=== PATIENT | female | born 1955 | race Caucasian/White ===

== ENCOUNTER 2016-12-21 15:51 | Inpatient (IN) | payer OTHER ==
[~2016-12-21] VITALS: Ht 172.7 cm; Wt 117.9 kg
[~2016-12-21 15:51] MED LIST: AFLURIA 2045 MCG/0.1 IM; CITALOPRAM HYDR40 MG PO; DIOVAN HCT 12.51 TA1 PO; LEVOTHYROXIN0.075 M1 PO; PARLODEL5 MG PO; VITAMIN B-121000 MCG PO; VITAMIN D32000 I1 PO
--- NOTE | 2016-12-21 16:03 | NUR ---
61 YO FEMALE TO TRIAGE STATING SHE HAD A CT SCAN SCAN THIS AM AND WAS TOLD TO COME TO ER FOR APPY WITH AN ABCESS. C/O FATIGUE. C/O RLQ PAIN PT BROUGHT DIRECTLY TO ROOM FROM [facility]
--- NOTE | 2016-12-21 16:49 | ED GI/GU/ABDOMINAL COMPLAINT ---
See Addendum History of Present Illness General Chief Complaint: Abdominal Pain/Flank Pain Stated Complaint: SIB DR MELENDEZ FOR "APPENDICITIS ON CT SCAN" Source: patient Exam Limitations: no limitations Vital Signs & Intake/Output Vital Signs & Intake/Output Vital Signs Date Time Temp Pulse Resp B/P B/P Pulse O2 O2 Flow FiO2 Mean Ox Delivery Rate 12/22 0653 97.6 74 20 140/90 95 Room Air 12/22 0035 98.3 65 20 140/80 96 Room Air / 2342 98.4 72 18 117/58 95 Room Air 06/05 2159 99.0 88 22 130/60 06 1754 99.6 90 18 135/70 97 Room Air / 1712 100 Room Air / 1602 96.5 105 18 138/92 95 Room Air ED Intake and Output 12/22 0000 12/21 1200 Intake Total Output Total Balance Patient 260 lb Weight Weight Reported by Patient Measurement Method Allergies Coded Allergies: morphine (VOMITING 12/21/16) oxycodone (VOMITING 12/21/16) Reconcile Medications Atorvastatin Calcium 20 MG TABLET 1 TAB PO DAILY CHOLESTEROL (Reported) Bromocriptine Mesylate 2.5 MG TABLET 1 TAB PO BID THYROID (Reported) Cholecalciferol (Vitamin D3) (Vitamin D) (Unknown Strength) CAPSULE (Unknown Dose) PO DAILY SUPPLEMENT (Reported) Citalopram Hydrobromide (Citalopram HBr) 40 MG TABLET 1 TAB PO DAILY MENTAL HEALTH (Reported) Cyanocobalamin (Vitamin B-12) (Unknown Strength) TABLET (Unknown Dose) PO DAILY SUPPLEMENT (Reported) Levothyroxine Sodium 88 MCG TABLET 1 TAB PO DAILY THYROID (Reported) Valsartan/Hydrochlorothiazide (Valsartan-Hctz 320-12.5 MG Tab) 320 MG-12.5 MG TABLET 1 TAB PO DAILY BP (Reported) Verapamil HCl (Verapamil ER) 180 MG TABLET.ER 1 TAB PO DAILY BP (Reported) Warfarin Sodium (Unknown Strength) TABLET (Unknown Dose) PO AD BLOOD THINNER (Reported) Triage Note: 61 YO FEMALE TO TRIAGE STATING SHE HAD A CT SCAN SCAN THIS AM AND WAS TOLD TO COME TO ER FOR APPY WITH AN ABCESS. C/O FATIGUE. C/O RLQ PAIN Triage Nurses Notes Reviewed? yes ? n Is pt currently ? No HPI: Ms. Pollock is a 61 yo f w/ PMH of CHF, MVP s/p valve replacement and on coumadin presenting to the ED for abdominal discomfort. Pt states her abdominal pain began 2 weeks ago, and worsened last week. 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 Over the past week she's had decreased intake by mouth with decreased appetite. Patient endorses subjective fever and chills but no temperature documented at home. +nausea. Patient denies chest pain, shortness of breath, vomiting, or diarrhea. She says she's been more constipated over the past week. She had an appointment with her primary care doctor so she told them about the abdominal pain. Her PCP ordered a CT of her abdomen and pelvis which was performed today. Patient then received a phone call to tell her that she had appendicitis with abscess formation. (MARIAM WEBB MD) Past History Travel History Traveled to [place] past 21 day No Medical History Any Pertinent Medical History? 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 No (MARIAM WEBB MD) Review of Systems Review of Systems Constitutional: Reports: chills, fever, malaise. EENTM: Reports: no symptoms. Respiratory: Reports: no symptoms. Cardiovascular: Reports: no symptoms. GI: Reports: abdominal pain, constipation, nausea. Denies: diarrhea, vomiting. Genitourinary: Reports: no symptoms. Musculoskeletal: Reports: no symptoms. Skin: Reports: no symptoms. Neurological/Psychological: Reports: no symptoms. Hematologic/Endocrine: Reports: no symptoms. Immunologic/Allergic: Reports: no symptoms. All Other Systems: Reviewed and Negative (MARIAM WEBB MD) Physical Exam Physical Exam General Appearance: well developed/nourished, no apparent distress, alert, awake , comfortable Head: atraumatic, normal appearance Eyes: Bilateral: normal appearance, PERRL, EOMI, normal inspection. Ears, Nose, Throat, Mouth: hearing grossly normal, moist mucous membrane Neck: normal inspection, supple, full range of motion, normal alignment Respiratory: normal breath sounds, chest non-tender, no respiratory distress Cardiovascular: regular rate/rhythm Gastrointestinal: normal bowel sounds, soft, + RLQ pain. No guarding or rebound. Back: normal inspection, normal range of motion Extremities: normal range of motion Neurologic/Psych: no motor/sensory deficits, awake, alert, oriented x 3, normal gait, normal mood/affect Skin: intact, normal color, warm/dry Core Measures ACS in differential dx? No Severe Sepsis Present: No Septic Shock Present: No (JON WILCOX,MARIAM) Progress Differential Diagnosis: appendicitis, inflamm bowel dis, PUD/GERD, perforated viscous, UTI/pyelo, abdominal abscess Plan of Care: Orders Procedure Date/time Status Nothing by Mouth 12/22 B Active CBC WITHOUT DIFFERENTIAL 12/22 599 Complete BASIC ELECTROLYTES PLUS BUN&CR 12/22 06 Complete PROTHROMBIN TIME 12/22 0500 Active Vital Signs 12/22 32 Active Teach/Educate 12/22 32 Active Pain Treatment and Response 12/22 32 Active Nutritional Intake, Monitor 12/22 32 Active Isolation 12/22 32 Active Intake & Output 12/22 32 Active Patient Care Conference 12/22 32 Active Activity/Ambulation 12/22 003 Active MISSING MEDICATION FORM 12/22 UNK Active Full Liquid Diet 12/21 D Complete Admit to inpatient 12/21 1842 Active Pathway - chart 12/21 1841 Active Patient Data 12/21 184 Active Code Status 12/21 1841 Active PROTHROMBIN TIME 12/21 1703 Complete COMPREHENSIVE METABOLIC PANEL 12/21 170 Complete CBC WITHOUT DIFFERENTIAL 12/21 170 Complete EKG 12/21 170 Active TYPE & SCREEN (NOT X-MATCH) 12/21 1703 Complete VTE Mechanical Prophylaxis 12/21 UNK Active Vital Signs 12/21 UNK Active Intake & Output 12/21 UNK Active Activity/Ambulation 12/21 UNK Active Current Medications Sig/Arvin Start time Last Medication Dose Stop Time Status Admin Ceftriaxone Sodium 1,000 MG DAILY 12/22 1000 AC (Rocephin) Citalopram 40 MG DAILY 12/22 1000 AC Hydrobromide (Celexa) Losartan Potassium 100 MG DAILY 12/22 1000 AC (Cozaar) Verapamil HCl 180 MG DAILY 12/22 1000 AC (Isoptin [id number] Tab (Verapamil Sr)) Levothyroxine Sodium 0.088 MG DAILY AC 12/22 0700 AC 12/22 (Synthroid) 0605 Metronidazole 500 MG IQ8 12/22 0000 AC 12/22 (Flagyl) 0749 N/A 1 UNIT (No Carrier) Metronidazole 500 MG IQ8 12/22 0000 CAN (Flagyl) N/A 1 UNIT (No Carrier) Bromocriptine 2.5 MG BID 12/21 2200 AC Mesylate (Parlodel 2.5 MG Tablet) Ciprofloxacin 400 MG Q12 12/21 2200 CAN (Ciprofloxacin) Dextrose/Water 200 ML (D5W) Heparin Sodium 5,000 UNIT Q8 12/21 2200 CAN (Porcine) Acetaminophen 650 MG Q6PRN PRN 12/21 1845 AC (Tylenol) Dextrose/Sodium 1,000 ML .Q10H 12/21 1845 AC 12/21 Chloride 1854 (D5-Normal Saline) Ondansetron HCl 4 MG Q8P PRN 12/21 184 AC (Zofran) Laboratory Tests 12/22/16 0610: Anion Gap 9, Estimated GFR > 60, BUN/Creatinine Ratio 12.9, CBC w Diff NO MAN DIFF REQ, RBC 4.00 L, MCV 83.9, MCH 28.1, RDW 13.5, MPV 8.2, Gran % 74.8, Lymphocytes % 14.3 L, Monocytes % 8.0, Eosinophils % 2.2, Basophils % 0.7, Absolute Granulocytes 4.9, Absolute Lymphocytes 0.9 L, Absolute Monocytes 0.5, Absolute Eosinophils 0.1, Absolute Basophils 0, PUBS MCHC 33.5 12/21/16 1715: Anion Gap 12, Estimated GFR > 60, BUN/Creatinine Ratio 15.7, Glucose 85, Calcium 9.3, Total Bilirubin 0.5, AST 17, ALT 29, Alkaline Phosphatase 71, Total Protein 7.3, Albumin 4.2, Globulin 3.1, Albumin/Globulin Ratio 1.4, PT 33.9 H, INR 3.27 H, CBC w Diff NO MAN DIFF REQ, RBC 4.22, MCV 83.5, MCH 28.1, RDW 14.0, MPV 7.9, Gran % 80.6 H, Lymphocytes % 11.5 L, Monocytes % 6.1, Eosinophils % 1.2, Basophils % 0.6, Absolute Granulocytes 7.4 H, Absolute Lymphocytes 1.0 L, Absolute Monocytes 0.6, Absolute Eosinophils 0.1, Absolute Basophils 0.1, PUBS MCHC 33.7 Patient is generally well-appearing. She presents in from her primary care doctor with CT results of appendicitis with abscess formation. Patient has no other abdominal surgeries and has not been seen by any other general surgeon. She does have history of a sternotomy for a mitral valve prolapse repair and is on Coumadin. General surgery was consult and spoke to Dr. Solis. Given the patient's extensive cardiac history as well as CHF and history of mitral valve repair, plan to admit the patient with IV antibiotics and have her evaluated by her radiology physician prior to taking her to the OR. Patient was seen here in the emergency department by Dr. Solis himself. Preop labs were ordered. Patient admitted to surgical floor under Dr. Solis. (MARIAM WEBB MD) Diagnostic Imaging: Viewed by Me: CT Scan. Discussed w/RAD: CT Scan. Radiology Impression: appendicitis w/ abscess formation Initial ED EKG: AFIB (MARIAM WEBB MD) Departure Departure Time of Disposition: 2350 Disposition: STILL A PATIENT Condition: Stable Clinical Impression Primary Impression: Appendicitis with abscess Referrals: YESSENIA LOWE,CARMEN ZELAYA (PCP/Family) Departure Forms: Customer Survey General Discharge Information Admission Note Spoke With: ELDER WILCOX,ALDO Ward Documentation of Exam: Documentation of any treatments & extenuating circumstances including Concerns Regarding Discharge (functional status, medication knowledge or non-compliance, living conditions, etc.) that warrant an admission rather than observation: Patient requires inpatient admission for appendicitis with abscess formation. Patient needs to be evaluated by her radiology physician prior to going to the operating room. Should the patient be discharged without this, her abscess and infection will worsen, could lead to sepsis, increasing her morbidity and mortality. (MARIAM WEBB MD) PA/APARTMENT GROUNDSKEEPER Co-Sign Statement Statement: ED Attending supervision documentation- [] I saw and evaluated the patient. I have also reviewed all the pertinent lab results and diagnostic results. I agree with the findings and the plan of care as documented in the PA's/APARTMENT GROUNDSKEEPER's documentation. [X] I have reviewed the ED Record and agree with the PA's/APARTMENT GROUNDSKEEPER's documentation. [] Additions or exceptions (if any) to the PAs/APARTMENT GROUNDSKEEPER's note and plan are summarized below: [] (SANAM VELEZ DO)
[2016-12-21] MEDS ORDERED: LEVOTHYROXINE88 MCG PO (17:12)
[2016-12-21] MEDS ORDERED: BROMOCRIPTINE2.5 MG PO (17:12)
[2016-12-21] MEDS ORDERED: ATORVASTATIN CA20 M1 PO (17:12)
[2016-12-21] MEDS ORDERED: CITALOPRAM HBR40 MG PO (17:13)
[2016-12-21] MEDS ORDERED: VERAPAMIL ER180 M1 PO (17:13)
[2016-12-21] MEDS ORDERED: VALSARTAN-HCTZ1 EAC4 PO (17:13)
[2016-12-21] MEDS ORDERED: VITAMIN B-121000 MC3 PO (17:15)
[2016-12-21] MEDS ORDERED: WARFARIN SODIU7.5 M1 PO (17:15)
[2016-12-21] MEDS ORDERED: VITAMIN D2000 UNIT PO (17:15)
[2016-12-21 17:26] LABS: ABSOLUTE BASOPHIL COUNT 0.1 /CUMM (0.0-0.2); ABSOLUTE EOSINOPHIL COUNT 0.1 /CUMM (0.0-0.7); ABSOLUTE GRANULOCYTE CT 7.4 /CUMM (1.4-6.5); ABSOLUTE MONOCYTE COUNT 0.6 /CUMM (0.10-0.60); BASOPHIL % 0.6 % (0.0-2.0); EOSINOPHIL % 1.2 % (0-5); GRANULOCYTE % 80.6 % (42.2-75.2); HEMATOCRIT 35.2 % (37-47); MEAN CORPUSCULAR HGB 28.1 PG (27.0-31.0); MEAN CORPUSCULAR HGB CONC 33.7 G/DL (33.0-37.0); MEAN CORPUSCULAR VOLUME 83.5 FL (81.0-99.0); MEAN PLATELET VOLUME 7.9 FL (7.4-10.4); PLATELET COUNT 330 /CUMM (130-400); RED BLOOD CELL CT 4.22 /CUMM (4.20-5.40); WHITE BLOOD CELL COUNT 9.1 /CUMM (4.8-10.8)
[2016-12-21 17:39] LABS: PT 33.9 SEC (9.4-12.5)
--- NOTE | 2016-12-21 18:00 | NUR ---
RESTING W/O C/O. AWAITING BED ASSIGNMENT.
--- NOTE | 2016-12-21 19:46 | History & Physical Pre-Op ---
See Addendum General Information and HPI MD Statement: I have seen and personally examined DASHA MAYFIELD and documented this H&P. The patient is a 61 year old F who presented with a patient stated chief complaint of []. History of Present Illness: 61-year-old female presents to the ED per the direction of her primary care physician. She has had vague right lower quadrant abdominal pain for the last 3 weeks. She states when the pain started, she was so fatigued she had to take a week off of work. She then began to feel better and has worked and gone about her normal day for the past 2 weeks. She describes the pain as mild discomfort in her right lower abdomen. She denies any nausea or vomiting, and has not had any fevers or chills. She was seen by her PCP when she was not feeling well 3 weeks ago and was scheduled for an outpatient CT scan which she had today. She was called by her doctor and told to report to the emergency room due to perforated appendicitis. She says she was surprised by this and did not think she felt sick enough to come to the emergency room. Of note, she takes Coumadin for A. fib and mitral valve replacement. Her dose was recently adjusted and her INR today is greater than 3. Allergies/Medications Allergies: Coded Allergies: morphine (VOMITING 12/21/16) oxycodone (VOMITING 12/21/16) Home Med list Atorvastatin Calcium 20 MG TABLET 1 TAB PO DAILY CHOLESTEROL (Reported) Bromocriptine Mesylate 2.5 MG TABLET 1 TAB PO BID THYROID (Reported) Cholecalciferol (Vitamin D3) (Vitamin D) (Unknown Strength) CAPSULE (Unknown Dose) PO DAILY SUPPLEMENT (Reported) Citalopram Hydrobromide (Citalopram HBr) 40 MG TABLET 1 TAB PO DAILY MENTAL HEALTH (Reported) Cyanocobalamin (Vitamin B-12) (Unknown Strength) TABLET (Unknown Dose) PO DAILY SUPPLEMENT (Reported) Levothyroxine Sodium 88 MCG TABLET 1 TAB PO DAILY THYROID (Reported) Valsartan/Hydrochlorothiazide (Valsartan-Hctz 320-12.5 MG Tab) 320 MG-12.5 MG TABLET 1 TAB PO DAILY BP (Reported) Verapamil HCl (Verapamil ER) 180 MG TABLET.ER 1 TAB PO DAILY BP (Reported) Warfarin Sodium (Unknown Strength) TABLET (Unknown Dose) PO AD BLOOD THINNER (Reported) Past History Medical History Cardiovascular: AFIB, CHF, hyperlipidemia, MITRAL VALVE REPLACEMENT, on chronic coumadin Psychiatric: depression Endocrine: hypothyroidism, 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 Bowel loops are normal in size. There is an appendicolith at the tip of the appendix which is surrounded by a small amount of fluid and fat stranding. The area of fluid attenuation around the tip of the appendix measures approximately 3 x 3 x 2.5 cm. Proximal to this collection, the appendix measures 0.9 cm diameter. Findings are compatible with appendicitis and appendiceal rupture with early periappendiceal abscess formation. IMPRESSION: 1. Appendicitis with periappendiceal abscess. 2. Cardiomegaly and interstitial pulmonary edema without pleural effusion. 3. Mild hepatosplenomegaly." See full radiology report/images for details Assessment/Plan Assessment/Plan: A: 61yoF perf'ed appendicitis with RLQ abscess formation, currently stable. P: broad spectrum abx am labs ivf, npo p mn possible IR drainage- to dw radiology prn pain meds home meds d/w Dr. Solis As Ranked By This Provider Problem List: 1. Appendicitis with peritoneal abscess
--- NOTE | 2016-12-21 20:40 | NUR ---
CLEAR LIQUID DIET GIVEN TO PATIENT.
--- NOTE | 2016-12-21 21:22 | Admission Core Measures ---
Admission Lab Results I reviewed the following labs: Laboratory Tests 12/21 1715 Chemistry Sodium (137 - 145 mmol/L) 137 Potassium (3.5 - 5.1 mmol/L) 3.9 Chloride (98 - 107 mmol/L) 101 Carbon Dioxide (22 - 30 mmol/L) 25 Anion Gap (5 - 16) 12 BUN (7 - 17 mg/dL) 11 Creatinine (0.5 - 1.0 mg/dL) 0.7 Estimated GFR (>60 ml/min) > 60 BUN/Creatinine Ratio (7 - 25 %) 15.7 Glucose (65 - 99 mg/dL) 85 Calcium (8.4 - 10.2 mg/dL) 9.3 Total Bilirubin (0.2 - 1.3 mg/dL) 0.5 AST (14 - 36 U/L) 17 ALT (9 - 52 U/L) 29 Alkaline Phosphatase (<127 U/L) 71 Total Protein (6.3 - 8.2 g/dL) 7.3 Albumin (3.5 - 5.0 g/dL) 4.2 Globulin (1.9 - 4.2 gm/dL) 3.1 Albumin/Globulin Ratio (1.1 - 2.2 %) 1.4 Coagulation PT (9.4 - 12.5 SEC) 33.9 H INR (0.90 - 1.19) 3.27 H Hematology CBC w Diff NO MAN DIFF REQ WBC (4.8 - 10.8 /CUMM) 9.1 RBC (4.20 - 5.40 /CUMM) 4.22 Hgb (12.0 - 16.0 G/DL) 11.9 L Hct (37 - 47 %) 35.2 L MCV (81.0 - 99.0 FL) 83.5 MCH (27.0 - 31.0 PG) 28.1 RDW (11.5 - 14.5 %) 14.0 Plt Count (130 - 400 /CUMM) 330 MPV (7.4 - 10.4 FL) 7.9 Gran % (42.2 - 75.2 %) 80.6 H Lymphocytes % (20.5 - 51.1 %) 11.5 L Monocytes % (1.7 - 9.3 %) 6.1 Eosinophils % (0 - 5 %) 1.2 Basophils % (0.0 - 2.0 %) 0.6 Absolute Granulocytes (1.4 - 6.5 /CUMM) 7.4 H Absolute Lymphocytes (1.2 - 3.4 /CUMM) 1.0 L Absolute Monocytes (0.10 - 0.60 /CUMM) 0.6 Absolute Eosinophils (0.0 - 0.7 /CUMM) 0.1 Absolute Basophils (0.0 - 0.2 /CUMM) 0.1 PUBS MCHC (33.0 - 37.0 G/DL) 33.7 Admission Meds I reviewed the following Meds: Current Medications Sig/Arvin Start time Last Medication Dose Stop Time Status Admin Acetaminophen 650 MG Q6PRN PRN 12/21 1845 AC (Tylenol) Bromocriptine 2.5 MG BID 12/21 2200 UNVr Mesylate (Parlodel 2.5 MG Tablet) Ceftriaxone Sodium 1,000 MG DAILY 12/22 1000 UNVr (Rocephin) Ciprofloxacin 400 MG Q12 12/21 2200 CAN (Ciprofloxacin) Dextrose/Water 200 ML (D5W) Citalopram 40 MG DAILY 12/22 1000 UNVr Hydrobromide (Celexa) Dextrose/Sodium 1,000 ML .Q10H 12/21 1845 AC 12/21 Chloride 1854 (D5-Normal Saline) Heparin Sodium 5,000 UNIT Q8 12/21 2200 CAN (Porcine) Levothyroxine Sodium 0.088 MG DAILY 12/22 1000 UNVr (Synthroid) Losartan Potassium 100 MG DAILY 12/22 1000 UNVr (Cozaar) Metronidazole 500 MG IQ8 12/22 0000 AC (Flagyl) N/A 1 UNIT (No Carrier) Metronidazole 500 MG IQ8 12/22 0000 CANr (Flagyl) N/A 1 UNIT (No Carrier) Ondansetron HCl 4 MG Q8P PRN 12/21 1845 AC (Zofran) Verapamil HCl 180 MG DAILY 12/22 1000 UNVr (Isoptin [id number] Tab (Verapamil Sr)) Acute Coronary Syndrome Inclusion Criteria ACS Diagnosis No Inpatient Core Measures LDL Reminder: If No, please order W/I first 24hr of stay Congestive Heart Failure Inclusion Criteria CHF Diagnosis No Cerebrovascular accident Inclusion Criteria CVA/TIA Diagnosis No Inpatient Core Measures Bedside Swallow Eval Reminder: If BSE failed, place ST order Antithrombotic Reminder: Order Antithrombotic Medication by end of day 2 Antithrombotic Reminder: Document Reason Antithrombotic Not ordered by end of day 2 AFIB/Flutter Reminder: If Present, add to problem list AFIB/Flutter Reminder: Order Anticoag Medication for pts with AFIB/Flutter Atherosclerosis Reminder: If Present, add to problem list LDL Reminder: If No, please order W/I first 24hr of stay PT Order Reminder: If No, please order Venous thromboembolism Inpatient Core Measures VTE Risk Factors: [facility] prophylaxis d/t No contraindications No VTE Pharm Prophylaxis d/t No contraindications Inclusion Criteria - Per Current guidelines, there needs to be overlap - treatment for the first 5 days of Warfarin therapy. - Parenteral Anticoagulation (IV or SC) needs to be - given along with Warfarin therapy. VTE Diagnosis No VTE Type NONE VTE Confirmed by (Test) NONE Problem List As ranked by this Provider includes Assessment & Plan 1. Appendicitis with peritoneal abscess HOME MEDS Home Med List Atorvastatin Calcium 20 MG TABLET 1 TAB PO DAILY CHOLESTEROL (Reported) Bromocriptine Mesylate 2.5 MG TABLET 1 TAB PO BID THYROID (Reported) Cholecalciferol (Vitamin D3) (Vitamin D) (Unknown Strength) CAPSULE (Unknown Dose) PO DAILY SUPPLEMENT (Reported) Citalopram Hydrobromide (Citalopram HBr) 40 MG TABLET 1 TAB PO DAILY MENTAL HEALTH (Reported) Cyanocobalamin (Vitamin B-12) (Unknown Strength) TABLET (Unknown Dose) PO DAILY SUPPLEMENT (Reported) Levothyroxine Sodium 88 MCG TABLET 1 TAB PO DAILY THYROID (Reported) Valsartan/Hydrochlorothiazide (Valsartan-Hctz 320-12.5 MG Tab) 320 MG-12.5 MG TABLET 1 TAB PO DAILY BP (Reported) Verapamil HCl (Verapamil ER) 180 MG TABLET.ER 1 TAB PO DAILY BP (Reported) Warfarin Sodium (Unknown Strength) TABLET (Unknown Dose) PO AD BLOOD THINNER (Reported)
--- NOTE | 2016-12-21 22:12 | NUR ---
RESTING QUIETLY. NO INCREASED PAIN/DISCOMFORT. CONTINUE TO AWAIT BED ASSIGNMENT.
--- NOTE | 2016-12-21 23:01 | NUR ---
PT GOING TO ROOM 224-1.
--- NOTE | 2016-12-21 23:06 | NUR ---
REPORT GIVEN TO REBECA Mahan RN
--- NOTE | 2016-12-22 00:11 | NUR ---
REPORT GIVEN TO OPAL DAVE ORDERED
[2016-12-22 00:35] VITALS: BP 140/80
--- NOTE | 2016-12-22 01:55 | NUR ---
PT ARRIVED TO FLOOR AT 0017 VIA WHEELCHAIR. A&OX3, INDEPENENT, ON RA, NO DISTRESS. C/O PAIN 07/28 RLQ DULL ACHING PAIN. NO INTERVENTIONS NEEDED AT THIS TIME. VSS, AFEBRILE, LUNGS CLEAR THROUGHOUT. IV FLUIDS RUNNING. PT ORIENTED TO ROOM STAFF, AND CALL [facility] WITHIN REACH. WILL MONITOR.
[2016-12-22 06:53] VITALS: BP 140/90
[2016-12-22 08:48] LABS: ABSOLUTE BASOPHIL COUNT 0 /CUMM (0.0-0.2); ABSOLUTE EOSINOPHIL COUNT 0.1 /CUMM (0.0-0.7); ABSOLUTE GRANULOCYTE CT 4.9 /CUMM (1.4-6.5); ABSOLUTE LYMPH COUNT 0.9 /CUMM (1.2-3.4); ABSOLUTE MONOCYTE COUNT 0.5 /CUMM (0.10-0.60); BASOPHIL % 0.7 % (0.0-2.0); EOSINOPHIL % 2.2 % (0-5); GRANULOCYTE % 74.8 % (42.2-75.2); HEMATOCRIT 33.5 % (37-47); MEAN CORPUSCULAR HGB 28.1 PG (27.0-31.0); MEAN CORPUSCULAR HGB CONC 33.5 G/DL (33.0-37.0); MEAN CORPUSCULAR VOLUME 83.9 FL (81.0-99.0); MEAN PLATELET VOLUME 8.2 FL (7.4-10.4); PLATELET COUNT 298 /CUMM (130-400); RBC DISTRIBUTION WIDTH 13.5 % (11.5-14.5); WHITE BLOOD CELL COUNT 6.6 /CUMM (4.8-10.8)
--- NOTE | 2016-12-22 10:05 | PN- General Surgery ---
Surgical Brief Attending Note Brief Attending Note: PATIENT CONTINUES TO DO WELL. NO PAIN. MINIMAL TENDERNESS. CT REVIEWED WITH IR. ABSCESS TOO SMALL AND UNDERDEVELOPED FOR PERCUTANEOUS DRAINAGE. OBSERVE IV ABX. REIMAGE IN A WEEK. MAY DISCHARGE HOME BEFORE NEXT SCAN. AWAIT CARDS INPUT RE; SUITABLITY FOR SURGERY SHOULD IT BECOME NECESSARY.
[2016-12-22 14:13] VITALS: BP 120/60
[2016-12-22 15:15] LABS: PT 32.1 SEC (9.4-12.5)
--- NOTE | 2016-12-22 16:03 | Patient Discharge Instructions ---
Discharge Instructions General Discharge Information You were seen/treated for: perforated appendicitis / non-drainable collection You had these procedures: iv antibiotics Watch for these problems: fever>101.3. increased pain Special Instructions: take antibiotics as directed. follow up with Dr Solis in 1 week, you will need a repeat CT scan at that time. 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 continue the coumadin take Augmentin for your infection (antibiotics) Diet Continue normal diet: Yes Recommended Diet: Heart Healthy Activity Full Activity/No Limits: Yes Activity Self Limited: Yes Acute Coronary Syndrome Inclusion Criteria At DC or during hospital stay patient has or had the following: ACS DIAGNOSIS No Discharge Core Measures Meds if any: Prescribed or Continued at Discharge Meds if any: NOT Prescribed or Continued at Discharge Congestive Heart Failure Inclusion Criteria At DC or during hospital stay patient has or had the following: CHF DIAGNOSIS Yes Discharge Core Measures Meds if any: Prescribed or Continued at Discharge Meds if any: NOT Prescribed or Continued at Discharge Cerebrovascular accident Inclusion Criteria At DC or during hospital stay patient has or had the following: CVA/TIA Diagnosis No Discharge Core Measures Meds if any: Prescribed or Continued at Discharge Meds if any: NOT Prescribed or Continued at Discharge Venous thromboembolism Inclusion Criteria VTE Diagnosis No VTE Type NONE VTE Confirmed by (Test) NONE Discharge Core Measures - Per Current guidelines, there needs to be overlap - treatment for the first 5 days of Warfarin therapy. - If discharged on Warfarin prior to 5 days of - overlap therapy, the patient will need to be - assessed for post discharge needs including - *Post discharge parental anticoagulation - *Warfarin and/or parental anticoagulation education - *Follow up date to check INR post discharge At least 5 days overlap therapy as Inpatient No Meds if any: Prescribed or Continued at Discharge Note: Overlap Therapy is Warfarin and Anticoagulant Meds if any: NOT Prescribed or Continued at Discharge
--- NOTE | 2016-12-22 17:41 | Cons- Cardiology ---
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 The plan is for initial medical management of the appendicitis with antibiotic therapy. I am consulted for preoperative evaluation in case surgery is needed. She is followed in the office by Dr. Betancur from my group. In April 2016 she had a BECKY which revealed moderate stenosis of her bioprosthetic mitral valve. She complains of chronic fatigue which has been present for the past 2 years. She also notes recent symptoms of a flulike illness with abdominal discomfort, shortness of breath, and sweats. Yesterday she had a CT scan of the abdomen and a chest x-ray as an outpatient, and the CT scan showed evidence of appendicitis. There was a question of mild pulmonary edema on the chest x-ray. She has had no chest pain. No palpitations. No syncope. No edema. No orthopnea. No diaphoresis. Allergies/Medications Allergies: Coded Allergies: morphine (VOMITING 12/21/16) oxycodone (VOMITING 12/21/16) Home Med List: Atorvastatin Calcium 20 MG TABLET 1 TAB PO DAILY CHOLESTEROL (Reported) Bromocriptine Mesylate 2.5 MG TABLET 1 TAB PO BID THYROID (Reported) Cholecalciferol (Vitamin D3) (Vitamin D) (Unknown Strength) CAPSULE (Unknown Dose) PO DAILY SUPPLEMENT (Reported) Citalopram Hydrobromide (Citalopram HBr) 40 MG TABLET 1 TAB PO DAILY MENTAL HEALTH (Reported) Cyanocobalamin (Vitamin B-12) (Unknown Strength) TABLET (Unknown Dose) PO DAILY SUPPLEMENT (Reported) Levothyroxine Sodium 88 MCG TABLET 1 TAB PO DAILY THYROID (Reported) Valsartan/Hydrochlorothiazide (Valsartan-Hctz 320-12.5 MG Tab) 320 MG-12.5 MG TABLET 1 TAB PO DAILY BP (Reported) Verapamil HCl (Verapamil ER) 180 MG TABLET.ER 1 TAB PO DAILY BP (Reported) Warfarin Sodium (Unknown Strength) TABLET (Unknown Dose) PO AD BLOOD THINNER (Reported) Current Medications: Current Medications Sig/Arvin Start time Last Medication Dose Route Stop Time Status Admin Acetaminophen 650 MG Q6PRN PRN 12/21 1845 AC PO Bromocriptine 2.5 MG BID 12/21 2200 AC 12/22 Mesylate PO 0928 Ceftriaxone Sodium 1,000 MG DAILY 12/22 1000 AC 12/22 IV 0927 Ciprofloxacin 400 MG Q12 12/21 2200 CAN Dextrose/Water 200 ML IV Citalopram 40 MG DAILY 12/22 1000 AC 12/22 Hydrobromide PO 09 Dextrose/Sodium 1,000 ML .Q10H 12/21 1845 DC 12/22 Chloride IV 0928 Heparin Sodium 5,000 UNIT Q8 12/21 2200 CAN (Porcine) SC Levothyroxine Sodium 0.088 MG DAILY AC 12/22 0700 AC 12/22 PO 0605 Losartan Potassium 100 MG DAILY 12/22 1000 AC 12/22 PO 0928 Metronidazole 500 MG IQ8 12/22 0000 AC 12/22 N/A 1 UNIT IV 1605 Metronidazole 500 MG IQ8 12/22 0000 CAN N/A 1 UNIT IV Ondansetron HCl 4 MG Q8P PRN 12/21 1845 AC IV Patient Medication 1 ED .STK-MED ONE 12/22 1350 [place] Teaching ED 12/22 1351 Verapamil HCl 180 MG DAILY 12/22 1000 AC 12/22 PO 0927 Review of Systems Review of Systems: No rash. No tremor. No melena. All other systems were reviewed, and were noted to be negative. 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 Family history was reviewed with the patient, and is negative for any factors contributing to the current admission. Psychosocial History Where Do You Live? Home Smoking Status: Never Smoked ETOH Use: denies use Illicit Drug Use: denies illicit drug use Functional Ability ADLs Independent: dressing, eating, toileting, bathing. 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) Exam & Diagnostic Data Vital Signs and I&O Vital Signs Date Time Temp Pulse Resp B/P B/P Pulse O2 O2 Flow FiO2 Mean Ox Delivery Rate 12/22 1413 98.2 71 20 120/60 96 Room Air 12/22 0928 72 140/82 12/22 0927 72 140/84 12/22 0653 97.6 74 20 140/90 95 Room Air 12/22 0035 98.3 65 20 140/80 96 Room Air 12/21 2342 98.4 72 18 117/58 95 Room Air 12/21 2159 99.0 88 22 130/60 12/21 1754 99.6 90 18 135/70 97 Room Air Intake & Output 12/22 1600 12/22 0800 12/22 0000 12/21 1600 12/21 0800 12/21 0000 Intake Total 500 800 Output Total 350 350 Balance 150 450 Intake, IV 200 800 Intake, Oral 300 Output, Urine 350 350 Patient 260 lb 260 lb Weight Weight Reported by Patient Measurement Method Physical Exam: Gen: The patient is in no acute distress HEENT: Normal nose, ears, and oropharynx. Pupils equal bilaterally. Conjunctiva normal. Neck: Supple with no JVD, no masses, and no thyromegaly Lungs: Clear to auscultation with normal respiratory effort Heart: Irregularly irregular, S1, S2, 1/6 systolic murmur. No peripheral edema, 2+ pulses in the lower extremities bilaterally Abdomen: Soft, nontender, no masses. No hepatomegaly. No splenomegaly Extremities: No clubbing or cyanosis. Normal muscle strength in the upper and lower extremities Skin: Normal skin turgor with no skin ulcers or lesions noted. Neuro: Cranial nerves intact. Sensation intact Psych: Alert and oriented 3 with appropriate affect Labs/Dheeraj Results: Laboratory Tests 12/22 12/22 1430 0610 Chemistry Sodium (137 - 145 mmol/L) 139 Potassium (3.5 - 5.1 mmol/L) 4.1 Chloride (98 - 107 mmol/L) 105 Carbon Dioxide (22 - 30 mmol/L) 26 Anion Gap (5 - 16) 9 BUN (7 - 17 mg/dL) 9 Creatinine (0.5 - 1.0 mg/dL) 0.7 Estimated GFR (>60 ml/min) > 60 BUN/Creatinine Ratio (7 - 25 %) 12.9 Coagulation PT (9.4 - 12.5 SEC) 32.1 H INR (0.90 - 1.19) 3.09 H Hematology CBC w Diff NO MAN DIFF REQ WBC (4.8 - 10.8 /CUMM) 6.6 RBC (4.20 - 5.40 /CUMM) 4.00 L Hgb (12.0 - 16.0 G/DL) 11.2 L Hct (37 - 47 %) 33.5 L MCV (81.0 - 99.0 FL) 83.9 MCH (27.0 - 31.0 PG) 28.1 RDW (11.5 - 14.5 %) 13.5 Plt Count (130 - 400 /CUMM) 298 MPV (7.4 - 10.4 FL) 8.2 Gran % (42.2 - 75.2 %) 74.8 Lymphocytes % (20.5 - 51.1 %) 14.3 L Monocytes % (1.7 - 9.3 %) 8.0 Eosinophils % (0 - 5 %) 2.2 Basophils % (0.0 - 2.0 %) 0.7 Absolute Granulocytes (1.4 - 6.5 /CUMM) 4.9 Absolute Lymphocytes (1.2 - 3.4 /CUMM) 0.9 L Absolute Monocytes (0.10 - 0.60 /CUMM) 0.5 Absolute Eosinophils (0.0 - 0.7 /CUMM) 0.1 Absolute Basophils (0.0 - 0.2 /CUMM) 0 PUBS MCHC (33.0 - 37.0 G/DL) 33.5 06/05 1715 Chemistry Sodium (137 - 145 mmol/L) 137 Potassium (3.5 - 5.1 mmol/L) 3.9 Chloride (98 - 107 mmol/L) 101 Carbon Dioxide (22 - 30 mmol/L) 25 Anion Gap (5 - 16) 12 BUN (7 - 17 mg/dL) 11 Creatinine (0.5 - 1.0 mg/dL) 0.7 Estimated GFR (>60 ml/min) > 60 BUN/Creatinine Ratio (7 - 25 %) 15.7 Glucose (65 - 99 mg/dL) 85 Calcium (8.4 - 10.2 mg/dL) 9.3 Total Bilirubin (0.2 - 1.3 mg/dL) 0.5 AST (14 - 36 U/L) 17 ALT (9 - 52 U/L) 29 Alkaline Phosphatase (<127 U/L) 71 Total Protein (6.3 - 8.2 g/dL) 7.3 Albumin (3.5 - 5.0 g/dL) 4.2 Globulin (1.9 - 4.2 gm/dL) 3.1 Albumin/Globulin Ratio (1.1 - 2.2 %) 1.4 Coagulation PT (9.4 - 12.5 SEC) 33.9 H INR (0.90 - 1.19) 3.27 H Hematology CBC w Diff NO MAN DIFF REQ WBC (4.8 - 10.8 /CUMM) 9.1 RBC (4.20 - 5.40 /CUMM) 4.22 Hgb (12.0 - 16.0 G/DL) 11.9 L Hct (37 - 47 %) 35.2 L MCV (81.0 - 99.0 FL) 83.5 MCH (27.0 - 31.0 PG) 28.1 RDW (11.5 - 14.5 %) 14.0 Plt Count (130 - 400 /CUMM) 330 MPV (7.4 - 10.4 FL) 7.9 Gran % (42.2 - 75.2 %) 80.6 H Lymphocytes % (20.5 - 51.1 %) 11.5 L Monocytes % (1.7 - 9.3 %) 6.1 Eosinophils % (0 - 5 %) 1.2 Basophils % (0.0 - 2.0 %) 0.6 Absolute Granulocytes (1.4 - 6.5 /CUMM) 7.4 H Absolute Lymphocytes (1.2 - 3.4 /CUMM) 1.0 L Absolute Monocytes (0.10 - 0.60 /CUMM) 0.6 Absolute Eosinophils (0.0 - 0.7 /CUMM) 0.1 Absolute Basophils (0.0 - 0.2 /CUMM) 0.1 PUBS MCHC (33.0 - 37.0 G/DL) 33.7 Diagnostic Data EKG Results EKG tracing is independently reviewed, and reveals atrial fibrillation with ventricular response of 86 CXR Results The cardiomediastinal silhouette is stable appearing. Heart remains mildly enlarged. Patient is status post median sternotomy and mitral valve replacement with multiple sternal wires identified, the lower most of which is fractured and unchanged back to the 2007 exam. There is cephalization of the pulmonary vasculature with mild increase in interstitial markings suggesting mild congestion. The lungs and pleural spaces appear clear without evidence of consolidation,, or significant appearing effusion or atelectasis. There is no evidence of pneumothorax. Included osseous structures demonstrate poststernotomy changes otherwise unremarkable. Other Results CT scan of the abdomen and pelvis: 1. Appendicitis with periappendiceal abscess. 2. Cardiomegaly and interstitial pulmonary edema without pleural effusion. 3. Mild hepatosplenomegaly. BECKY 03/31/16: Normal left systolic function. Severely dilated left atrium. Bioprosthetic mitral valve with moderate stenosis. Assessment/Plan Assessment/Plan The patient is a pleasant 61-year-old female with history of chronic atrial fibrillation, bioprosthetic mitral valve, and moderate bioprosthetic stenosis. She is admitted with acute cholecystitis which is planned to be initially treated conservatively, however surgery may eventually be required. I am consulted for preoperative evaluation. She notes fatigue 2 years and mild recent shortness of breath. Chest x-ray shows the possibility of mild pulmonary edema however there is not evidence of significant congestive heart failure at this time. Recommendations: * Management of acute cholecystitis as per surgery with antibiotic therapy for now and possible future need for surgery. * The patient is antiplatelet with warfarin as an outpatient for atrial fibrillation. INR is currently supratherapeutic despite holding warfarin. Continue to hold warfarin given possible need for surgery. * Repeat echocardiogram to reevaluate stenosis of bioprosthetic mitral valve. * Final recommendations regarding surgical risks will be made once echo results are available. * Continue cardiac medications. Consult Acknowledgment - Thank you for your consult request.
[2016-12-22 22:31] VITALS: BP 120/62
[2016-12-23 06:03] VITALS: BP 128/76
[2016-12-23 07:53] LABS: ABSOLUTE BASOPHIL COUNT 0.1 /CUMM (0.0-0.2); ABSOLUTE EOSINOPHIL COUNT 0.2 /CUMM (0.0-0.7); ABSOLUTE GRANULOCYTE CT 3.8 /CUMM (1.4-6.5); ABSOLUTE LYMPH COUNT 0.8 /CUMM (1.2-3.4); ABSOLUTE MONOCYTE COUNT 0.4 /CUMM (0.10-0.60); BASOPHIL % 1.1 % (0.0-2.0); HEMATOCRIT 33.4 % (37-47); MEAN CORPUSCULAR HGB 28.1 PG (27.0-31.0); MEAN CORPUSCULAR HGB CONC 33.4 G/DL (33.0-37.0); MEAN CORPUSCULAR VOLUME 84.1 FL (81.0-99.0); MEAN PLATELET VOLUME 8.3 FL (7.4-10.4); PLATELET COUNT 246 /CUMM (130-400); RBC DISTRIBUTION WIDTH 13.7 % (11.5-14.5); RED BLOOD CELL CT 3.97 /CUMM (4.20-5.40); WHITE BLOOD CELL COUNT 5.3 /CUMM (4.8-10.8)
[2016-12-23 08:13] LABS: PT 27.1 SEC (9.4-12.5)
--- NOTE | 2016-12-23 09:57 | PN- Cardiology ---
NELLY,[facility] 12/23/16 0956: Subjective Subjective: Patient seen and examined. she is comfortable with no acute distress, she denies any chest pain. She complaint of SOB with walking a short distance which has been going on for about a month. Per patient surgical team in going to manage appendicits medically, as she has small abcess which dosen't need surgical intervention. Review of Systems Constitutional: Reports: no symptoms. EENTM: Reports: no symptoms. Cardiovascular: Reports: no symptoms. Respiratory: Reports: short of breath. Gastrointestinal: Reports: no symptoms. Genitourinary: Reports: no symptoms. Musculoskeletal: Reports: no symptoms. All Other Systems: Reviewed and Negative Objective Vital Signs and I&Os Vital Signs Date Time Temp Pulse Resp B/P B/P Pulse O2 O2 Flow FiO2 Mean Ox Delivery Rate 12/23 09 82 132/80 12/23 0912 82 132/80 12/23 0603 98.2 82 18 128/76 94 Room Air 12/22 2231 98.0 67 20 120/62 96 12/22 1413 98.2 71 20 120/60 96 Room Air Intake & Output 12/23 1600 12/23 0800 12/23 0000 12/22 1600 12/22 0800 12/22 0000 Intake Total 150 250 500 800 Output Total 200 300 350 350 Balance -50 -50 150 450 Intake, IV 200 800 Intake, Oral 150 250 300 Output, Urine 200 300 350 350 Patient 260 lb 260 lb Weight Weight Reported by Patient Measurement Method Physical Exam General Appearance: well developed/nourished, no apparent distress, alert, awake , comfortable Head: atraumatic, normal appearance Neck: normal inspection, supple Respiratory: normal breath sounds Cardiovascular: irregularly irregular Peripheral Pulses: 3+ dorsalis pedis (R), 3+ dorsalis pedis (L) Abdomen: normal bowel sounds, soft Current Medications: Current Medications Sig/Arvin Start time Last Medication Dose Route Stop Time Status Admin Acetaminophen 650 MG Q6PRN PRN 12/21 1845 AC PO Bromocriptine 2.5 MG BID 12/21 2200 AC 12/23 Mesylate PO 0910 Ceftriaxone Sodium 1,000 MG DAILY 12/22 1000 AC 12/23 IV 0910 Citalopram 40 MG DAILY 12/22 1000 AC 12/23 Hydrobromide PO 0911 Levothyroxine Sodium 0.088 MG DAILY AC 12/22 0700 AC 12/23 PO 0536 Losartan Potassium 100 MG DAILY 12/22 1000 AC 12/23 PO 0912 Metronidazole 500 MG IQ8 12/22 0000 AC 12/23 N/A 1 UNIT IV 0748 Ondansetron HCl 4 MG Q8P PRN 12/21 1845 AC IV Patient Medication 1 ED .STK-MED ONE 12/22 1350 [place] Teaching ED 12/22 1351 Verapamil HCl 180 MG DAILY 12/22 1000 AC 12/23 PO 0912 Results Last 48 Hrs of Labs/Mics: Laboratory Tests 12/23/16 0615: PT 27.1 H, INR 2.61 H, CBC w Diff NO MAN DIFF REQ, RBC 3.97 L, MCV 84.1, MCH 28.1, RDW 13.7, MPV 8.3, Gran % 73.0, Lymphocytes % 15.3 L, Monocytes % 7.6, Eosinophils % 3.0, Basophils % 1.1, Absolute Granulocytes 3.8, Absolute Lymphocytes 0.8 L, Absolute Monocytes 0.4, Absolute Eosinophils 0.2, Absolute Basophils 0.1, PUBS MCHC 33.4 12/22/16 1430: PT 32.1 H, INR 3.09 H 12/22/16 0610: Anion Gap 9, Estimated GFR > 60, BUN/Creatinine Ratio 12.9, CBC w Diff NO MAN DIFF REQ, RBC 4.00 L, MCV 83.9, MCH 28.1, RDW 13.5, MPV 8.2, Gran % 74.8, Lymphocytes % 14.3 L, Monocytes % 8.0, Eosinophils % 2.2, Basophils % 0.7, Absolute Granulocytes 4.9, Absolute Lymphocytes 0.9 L, Absolute Monocytes 0.5, Absolute Eosinophils 0.1, Absolute Basophils 0, PUBS MCHC 33.5 12/21/16 1715: Anion Gap 12, Estimated GFR > 60, BUN/Creatinine Ratio 15.7, Glucose 85, Calcium 9.3, Total Bilirubin 0.5, AST 17, ALT 29, Alkaline Phosphatase 71, Total Protein 7.3, Albumin 4.2, Globulin 3.1, Albumin/Globulin Ratio 1.4, PT 33.9 H, INR 3.27 H, CBC w Diff NO MAN DIFF REQ, RBC 4.22, MCV 83.5, MCH 28.1, RDW 14.0, MPV 7.9, Gran % 80.6 H, Lymphocytes % 11.5 L, Monocytes % 6.1, Eosinophils % 1.2, Basophils % 0.6, Absolute Granulocytes 7.4 H, Absolute Lymphocytes 1.0 L, Absolute Monocytes 0.6, Absolute Eosinophils 0.1, Absolute Basophils 0.1, PUBS MCHC 33.7 Assessment/Plan Assessment/Plan The patient is a pleasant 61-year-old female with history of chronic atrial fibrillation, bioprosthetic mitral valve, and moderate bioprosthetic stenosis. She is admitted with acute cholecystitis which is planned to be initially treated conservatively, however surgery may eventually be required. Cardiology consulted for preoperative evaluation. She notes fatigue 2 years and mild recent shortness of breath. Chest x-ray shows the possibility of mild pulmonary edema however there is not evidence of significant congestive heart failure at this time. #Assessment: -Acute appendicitis with periappendiceal abscess. -Pulmonary edema per CXR -History of chronic atrial fibrillation on Coumadin (currently on hold in anticipation for the surgery) -History of bioprosthetic mitral valve, and moderate bioprosthetic stenosis. -History of hypertension Plan: -INR today is 2.61 (therapeutic), if no surgical intervention anticipated, coumadin should be restarted -Final recommendations regarding surgical risks will be made once echo results are available. -Continue cardiac medications (Cozaar 100 mg daily, verapamil 180 mg daily) Continue telemetry? Not applicable Problem List: 1. Atrial fibrillation with rapid ventricular response 2. Acute cholecystitis ARELI WELLER MD 12/23/16 2019: Assessment/Plan Assessment/Plan ATtending addendum: THe patient remains stable from a cardiac standpoint Echocardiogram pending The patient is being managed medically without plans for surgical intervention at the moment. The patient understands that she should followup with Dr. Betancur as an outpatient.
--- NOTE | 2016-12-23 13:19 | PN- General Surgery ---
Subjective Subjective: FEELS WELL. NO ABD PAIN. TOLERATING DIET. Objective Vital Signs and I&Os Vital Signs Date Time Temp Pulse Resp B/P B/P Pulse O2 O2 Flow FiO2 Mean Ox Delivery Rate 12/24 911 82 132/80 12/24 911 82 132/80 12/23 0603 98.2 82 18 128/76 94 Room Air 12/22 2231 98.0 67 20 120/62 96 12/22 1413 98.2 71 20 120/60 96 Room Air Intake & Output 12/23 1600 12/23 0812/23 0000 12/22 1600 12/22 0812/22 0000 Intake Total 150 250 500 800 Output Total 200 300 350 350 Balance -50 -50 150 450 Intake, IV 200 800 Intake, Oral 150 250 300 Output, Urine 200 300 350 350 Patient 260 lb 260 lb Weight Weight Reported by Patient Measurement Method Physical Exam: GEN; OBESE. NAD. LOOKS WELL. ABD; SOFT, NT Current Medications: Current Medications Sig/Arvin Start time Last Medication Dose Route Stop Time Status Admin Acetaminophen 650 MG Q6PRN PRN 12/21 1845 AC PO Bromocriptine 2.5 MG BID 12/21 2200 AC 12/23 Mesylate PO 0910 Ceftriaxone Sodium 1,000 MG DAILY 12/22 1000 AC 12/23 IV 0910 Citalopram 40 MG DAILY 12/22 1000 AC 12/23 Hydrobromide PO 0911 Levothyroxine Sodium 0.088 MG DAILY AC 12/22 0700 AC 12/23 PO 0536 Losartan Potassium 100 MG DAILY 12/22 1000 AC 12/23 PO 0912 Metronidazole 500 MG IQ8 12/22 0000 AC 12/23 N/A 1 UNIT IV 0748 Ondansetron HCl 4 MG Q8P PRN 12/21 1845 AC IV Patient Medication 1 ED .STK-MED ONE 12/22 1350 [place] Teaching ED 12/22 1351 Verapamil HCl 180 MG DAILY 12/22 1000 AC 12/23 PO 0912 Results Last 48 Hours of Labs: Laboratory Tests 12/23 12/22 0615 1430 Coagulation PT (9.4 - 12.5 SEC) 27.1 H 32.1 H INR (0.90 - 1.19) 2.61 H 3.09 H Hematology CBC w Diff NO MAN DIFF REQ WBC (4.8 - 10.8 /CUMM) 5.3 RBC (4.20 - 5.40 /CUMM) 3.97 L Hgb (12.0 - 16.0 G/DL) 11.2 L Hct (37 - 47 %) 33.4 L MCV (81.0 - 99.0 FL) 84.1 MCH (27.0 - 31.0 PG) 28.1 RDW (11.5 - 14.5 %) 13.7 Plt Count (130 - 400 /CUMM) 246 MPV (7.4 - 10.4 FL) 8.3 Gran % (42.2 - 75.2 %) 73.0 Lymphocytes % (20.5 - 51.1 %) 15.3 L Monocytes % (1.7 - 9.3 %) 7.6 Eosinophils % (0 - 5 %) 3.0 Basophils % (0.0 - 2.0 %) 1.1 Absolute Granulocytes (1.4 - 6.5 /CUMM) 3.8 Absolute Lymphocytes (1.2 - 3.4 /CUMM) 0.8 L Absolute Monocytes (0.10 - 0.60 /CUMM) 0.4 Absolute Eosinophils (0.0 - 0.7 /CUMM) 0.2 Absolute Basophils (0.0 - 0.2 /CUMM) 0.1 PUBS MCHC (33.0 - 37.0 G/DL) 33.4 06 06/05 0610 1715 Chemistry Sodium (137 - 145 mmol/L) 139 137 Potassium (3.5 - 5.1 mmol/L) 4.1 3.9 Chloride (98 - 107 mmol/L) 105 101 Carbon Dioxide (22 - 30 mmol/L) 26 25 Anion Gap (5 - 16) 9 12 BUN (7 - 17 mg/dL) 9 11 Creatinine (0.5 - 1.0 mg/dL) 0.7 0.7 Estimated GFR (>60 ml/min) > 60 > 60 BUN/Creatinine Ratio (7 - 25 %) 12.9 15.7 Glucose (65 - 99 mg/dL) 85 Calcium (8.4 - 10.2 mg/dL) 9.3 Total Bilirubin (0.2 - 1.3 mg/dL) 0.5 AST (14 - 36 U/L) 17 ALT (9 - 52 U/L) 29 Alkaline Phosphatase (<127 U/L) 71 Total Protein (6.3 - 8.2 g/dL) 7.3 Albumin (3.5 - 5.0 g/dL) 4.2 Globulin (1.9 - 4.2 gm/dL) 3.1 Albumin/Globulin Ratio (1.1 - 2.2 %) 1.4 Coagulation PT (9.4 - 12.5 SEC) 33.9 H INR (0.90 - 1.19) 3.27 H Hematology CBC w Diff NO MAN DIFF REQ NO MAN DIFF REQ WBC (4.8 - 10.8 /CUMM) 6.6 9.1 RBC (4.20 - 5.40 /CUMM) 4.00 L 4.22 Hgb (12.0 - 16.0 G/DL) 11.2 L 11.9 L Hct (37 - 47 %) 33.5 L 35.2 L MCV (81.0 - 99.0 FL) 83.9 83.5 MCH (27.0 - 31.0 PG) 28.1 28.1 RDW (11.5 - 14.5 %) 13.5 14.0 Plt Count (130 - 400 /CUMM) 298 330 MPV (7.4 - 10.4 FL) 8.2 7.9 Gran % (42.2 - 75.2 %) 74.8 80.6 H Lymphocytes % (20.5 - 51.1 %) 14.3 L 11.5 L Monocytes % (1.7 - 9.3 %) 8.0 6.1 Eosinophils % (0 - 5 %) 2.2 1.2 Basophils % (0.0 - 2.0 %) 0.7 0.6 Absolute Granulocytes (1.4 - 6.5 /CUMM) 4.9 7.4 H Absolute Lymphocytes (1.2 - 3.4 /CUMM) 0.9 L 1.0 L Absolute Monocytes (0.10 - 0.60 /CUMM) 0.5 0.6 Absolute Eosinophils (0.0 - 0.7 /CUMM) 0.1 0.1 Absolute Basophils (0.0 - 0.2 /CUMM) 0 0.1 PUBS MCHC (33.0 - 37.0 G/DL) 33.5 33.7 Assessment/Plan Assessment/Plan APPENDICITIS WITH PERFORATION AND SMALL ABSCESS. MEDICAL MANAGEMENT THUS FAR HAS IMPROVED SYMPTOMS. NOW WITHOUT PAIN. PLAN FOR DISCHARGE ON ORAL ABX FOR F/U CT OUTPATIENT, PENDING FINAL CARDS RECOMMENDATIONS RE: POSSIBLE MED CHANGE.
[2016-12-23 14:19] VITALS: BP 128/62
--- NOTE | 2016-12-23 14:21 | NUR ---
SHIFT NOTE PT DENIES PAIN/DISCOMFORT. AMBULATING IND. OOB. TOLERATING PO INTAKE. ON IV FLAGYL. SAFETY MAINTAINED, NEEDS IN REACH.
--- NOTE | 2016-12-23 17:46 | ECHOCARDIOGRAM REPORT ---
DAHSA MAYFIELD Age: 61 : 1955 Gender: F Exam Date: 12/22/2016 18:18 Exam Location: [place] [facility] Ht (in): 68 Wt (lb): 260 BSA: 2.43 BP: 120 / 60 Ordering Physician: SAMI LION M Referring Physician: SAMI LION MD Technologist: Zofia Capone RUST Room Number: 224-01 Indications: VALVULAR DISEASE, BIOPROSTHETIC MV WITH STENOSIS Rhythm: Atrial fibrillation Technical Quality: Fair FINDINGS Left Ventricle Normal size left ventricle. Normal left ventricular wall thickness. Normal left ventricular ejection fraction visually estimated at > 55%. Normal left ventricular wall motion. Right Ventricle Normal right ventricular size and function. Right Atrium Mild right atrial dilatation. Left Atrium Severe left atrial dilatation. Mitral Valve Bioprosthetic mitral valve. Mild mitral regurgitation. Mitral valve area by pressure half time is 1.45 sq cm. The mean mitral valve gradient is 13 mmHg. 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 Aortic Valve Diffuse thickening (sclerosis) of the aortic valve cusps without reduced excursion. No aortic stenosis. No aortic regurgitation. Tricuspid Valve Tricuspid valve not well visualized, grossly normal. Mild tricuspid regurgitation. No evidence of pulmonary hypertension. RVSP 38 mmHg. Pulmonic Valve Pulmonic valve not well visualized, grossly normal. Trace pulmonic regurgitation. Pericardium No pericardial effusion. Great Vessels Normal size aortic root. CONCLUSIONS Normal size left ventricle. Normal left ventricular ejection fraction visually estimated at > 55%. Mild right atrial dilatation. Severe left atrial dilatation. Bioprosthetic mitral valve. Mild mitral regurgitation. Mitral valve area by pressure half time is 1.45 sq cm. The mean mitral valve gradient is 13 mmHg. 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 Mild tricuspid regurgitation. Normal left ventricular ejection fraction visually estimated at > 55%. Sami Lion M.D. (Electronically Signed) Final Date: 23 December 2016 17:45 MEASUREMENTS (Male / Female) Normal Values 2D ECHO LV Diastolic Diameter PLAX 5.2 cm 4.2 - 5.9 / 3.9 - 5.3 cm LV Systolic Diameter PLAX 2.9 cm 2.1 - 4.0 cm LV Fractional Shortening PLAX 44.2 % 25 - 46 % LV Ejection Fraction 2D Teich 75.1 % IVS Diastolic Thickness 1.0 cm LVPW Diastolic Thickness 1.0 cm LV Relative Wall Thickness 0.4 RV Internal Dim ED PLAX 3.4 cm 1.9 - 3.8 cm LVOT Diameter 1.9 cm Aortic Root Diameter 3.2 cm LA Systolic Diameter LX 5.6 cm 3.0 - 4.0 / 2.7 - 3.8 cm LA Volume 119.0 cm 18 - 58 / 22 - 52 cm Ascending Aorta Diameter 3.0 cm DOPPLER AV Peak Velocity 159.0 cm/s AV Peak Gradient 10.1 mmHg AV Mean Velocity 110.0 cm/s AV Mean Gradient 6.0 mmHg AV Velocity Time Integral 35.4 cm LVOT Peak Velocity 119.0 cm/s LVOT Peak Gradient 5.7 mmHg LVOT Mean Velocity 78.1 cm/s LVOT Mean Gradient 3.0 mmHg LVOT Velocity Time Integral 27.6 cm LVOT Stroke Volume 78.3 cm AV Area Cont Eq vti 2.2 cm AV Area Cont Eq pk 2.1 cm MV Peak Velocity 297.0 cm/s MV Peak Gradient 35.0 mmHg MV Mean Velocity 163.0 cm/s MV Mean Gradient 13.0 mmHg Mitral E Point Velocity 236.0 cm/s MV PHT Velocity 289.5 cm/s MV Deceleration [place] 603.0 cm/s MV Pressure Half Time 144.0 ms MV Area PHT 1.5 cm MV Deceleration Time 478.0 ms TR Peak Velocity 288.0 cm/s TR Peak Gradient 33.2 mmHg Right Atrial Pressure 5.0 mmHg Pulmonary Artery Systolic Pressu 38.2 mmHg Right Ventricular Systolic Press 38.2 mmHg PV Peak Velocity 79.6 cm/s PV Peak Gradient 2.5 mmHg PV Mean Velocity 58.8 cm/s PV Mean Gradient 2.0 mmHg PV Velocity Time Integral 16.3 cm LV E' Lateral Velocity 8.5 cm/s Mitral E to LV E' Lateral Ratio 27.8 LV E' Septal Velocity 3.9 cm/s Mitral E to LV E' Septal Ratio 60.5
[2016-12-23 21:55] VITALS: BP 120/76
[2016-12-24 06:25] VITALS: BP 128/74
--- NOTE | 2016-12-24 08:01 | PN- General Surgery ---
Subjective Subjective: Patient comfortable, no acute events overnight, no pain, no fever, no nausea vomiting, she has a normal appetite and would like to be discharged home today Objective Vital Signs and I&Os Vital Signs Date Time Temp Pulse Resp B/P B/P Pulse O2 O2 Flow FiO2 Mean Ox Delivery Rate 12/24 0525 97.9 87 18 128/74 96 Room Air 12/23 2155 98.3 65 20 120/76 94 Room Air 12/23 1419 97.8 74 20 128/62 93 12/23 09 82 132/80 12/23 09 82 132/80 Intake & Output 12/24 0812/24 0000 12/23 1600 12/23 0812/23 0000 12/22 1600 Intake Total 270 200 650 150 250 500 Output Total 350 200 300 350 Balance 270 200 300 -50 -50 150 Intake, IV 150 200 100 200 Intake, Oral 120 550 150 250 300 Output, Urine 350 200 300 350 Physical Exam: Well-developed well-nourished no apparent distress. HEENT: Atraumatic, extraocular motion intact Neck: Supple, no lymphadenopathy Respiratory: No respiratory distress Abdomen: Soft, nontender nondistended Extremities: No edema, no calf pain Neuro: Alert and oriented x3 Psych: Mood affect normal, normal memory normal judgment. Skin: Warm and dry, no rash on exposed skin Results Last 48 Hours of Labs: Laboratory Tests 12/23 1430 Coagulation PT (9.4 - 12.5 SEC) 27.1 H 32.1 H INR (0.90 - 1.19) 2.61 H 3.09 H Hematology CBC w Diff NO MAN DIFF REQ WBC (4.8 - 10.8 /CUMM) 5.3 RBC (4.20 - 5.40 /CUMM) 3.97 L Hgb (12.0 - 16.0 G/DL) 11.2 L Hct (37 - 47 %) 33.4 L MCV (81.0 - 99.0 FL) 84.1 MCH (27.0 - 31.0 PG) 28.1 RDW (11.5 - 14.5 %) 13.7 Plt Count (130 - 400 /CUMM) 246 MPV (7.4 - 10.4 FL) 8.3 Gran % (42.2 - 75.2 %) 73.0 Lymphocytes % (20.5 - 51.1 %) 15.3 L Monocytes % (1.7 - 9.3 %) 7.6 Eosinophils % (0 - 5 %) 3.0 Basophils % (0.0 - 2.0 %) 1.1 Absolute Granulocytes (1.4 - 6.5 /CUMM) 3.8 Absolute Lymphocytes (1.2 - 3.4 /CUMM) 0.8 L Absolute Monocytes (0.10 - 0.60 /CUMM) 0.4 Absolute Eosinophils (0.0 - 0.7 /CUMM) 0.2 Absolute Basophils (0.0 - 0.2 /CUMM) 0.1 PUBS MCHC (33.0 - 37.0 G/DL) 33.4 Assessment/Plan Assessment/Plan Hospital day #3 status post perforated appendicitis with abscess Stable for discharge home today, continue antibiotics as outpatient Appreciate cardiology input, discussed with patient, 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 Core Measures/Miscellaneous Venous Thromboembolism VTE Risk Factors: Age > 40, No Risk Factors VTE Contraindications: No Contraindications VTE Diagnosis: No VTE Type: NONE VTE Confirmed by (Test): NONE Beta Blanche Is Beta Blanche a Home Med? Yes If Yes, Was This Ordered Today? Yes Antibiotics Is Patient on Antibiotics? Yes If Yes: infection
[2016-12-24] MEDS ORDERED: AUGMENTIN 875-1 EACH PO (08:06)
[2016-12-24 09:10] VITALS: BP 130/78
--- NOTE | 2016-12-24 10:08 | PN- Cardiology ---
Subjective Subjective: Feeling mostly well. No current abdominal pain. No chest pain. No nausea or vomiting. No palpitations. Objective Vital Signs and I&Os Vital Signs Date Time Temp Pulse Resp B/P B/P Pulse O2 O2 Flow FiO2 Mean Ox Delivery Rate 12/24 0910 80 130/78 12/24 0910 80 130/76 12/24 0625 97.9 87 18 128/74 96 Room Air 12/23 2155 98.3 65 20 120/76 94 Room Air 12/23 1419 97.8 74 20 128/62 93 Intake & Output 12/24 1600 12/24 0800 12/24 0000 12/23 1600 12/23 0800 12/23 0000 Intake Total 270 200 650 150 250 Output Total 350 200 300 Balance 270 200 300 -50 -50 Intake, IV 150 200 100 Intake, Oral 120 550 150 250 Output, Urine 350 200 300 Physical Exam: Well-developed well-nourished no apparent distress. HEENT: Atraumatic, extraocular motion intact Neck: Supple, no lymphadenopathy Respiratory: No respiratory distress Abdomen: Soft, nontender nondistended Extremities: No edema, no calf pain Neuro: Alert and oriented x3 Psych: Mood affect normal, normal memory normal judgment. Skin: Warm and dry, no rash on exposed skin Current Medications: Current Medications Sig/Arvin Start time Last Medication Dose Route Stop Time Status Admin Acetaminophen 650 MG Q6PRN PRN 12/21 1845 DCD PO Bromocriptine 2.5 MG BID 12/21 2200 DCD 12/24 Mesylate PO 0910 Ceftriaxone Sodium 1,000 MG DAILY 12/22 1000 DCD 12/24 IV 0910 Citalopram 40 MG DAILY 12/22 1000 DCD 12/24 Hydrobromide PO 0910 Levothyroxine Sodium 0.088 MG DAILY AC 12/22 0700 DCD 12/24 PO 0541 Losartan Potassium 100 MG DAILY 12/22 1000 DCD 06/ PO 0910 Metronidazole 500 MG IQ8 12/22 0000 DCD 12/24 N/A 1 UNIT IV 0753 Ondansetron HCl 4 MG Q8P PRN 12/21 1845 DCD IV Verapamil HCl 180 MG DAILY 12/22 1000 DCD 06 PO 0910 Results Last 48 Hrs of Labs/Mics: Laboratory Tests 12/23/1615: PT 27.1 H, INR 2.61 H, CBC w Diff NO MAN DIFF REQ, RBC 3.97 L, MCV 84.1, MCH 28.1, RDW 13.7, MPV 8.3, Gran % 73.0, Lymphocytes % 15.3 L, Monocytes % 7.6, Eosinophils % 3.0, Basophils % 1.1, Absolute Granulocytes 3.8, Absolute Lymphocytes 0.8 L, Absolute Monocytes 0.4, Absolute Eosinophils 0.2, Absolute Basophils 0.1, PUBS MCHC 33.4 12/22/16 1430: PT 32.1 H, INR 3.09 H Recent Imaging Studies: Echocardiogram 12/23/16: Normal size left ventricle. Normal left ventricular ejection fraction visually estimated at > 55%. Mild right atrial dilatation. Severe left atrial dilatation. Bioprosthetic mitral valve. Mild mitral regurgitation. Mitral valve area by pressure half time is 1.45 sq cm. The mean mitral valve gradient is 13 mmHg. 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 Mild tricuspid regurgitation. Normal left ventricular ejection fraction visually estimated at > 55%. Assessment/Plan Assessment/Plan Assessment: 1. 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 Chronic atrial fibrillation 3. Appendicitis with perforation and small abscess. Conservative management recommended by surgical service. Plan: * Continue current cardiac medications. * Continue warfarin with dose adjusted for INR 2-3 * Follow up with Dr. Betancur in 1 week, and prior to any nonurgent surgery Continue telemetry? Not applicable
--- NOTE | 2016-12-26 13:40 | Surgical Discharge Summary ---
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 Home What is Your Primary Language? Bengali ETOH Use: denies use Review of Systems: NOT PERFORMED AT D/C Hospital Course Course Attending Physician: ALDO FRIEDMAN MD Primary Care Physician: CARMEN BERNARD Hospital Course: ADMITTED FOR IV ANTIBIOTICS AND MEDICAL MANAGEMENT OF APPENDICEAL ABSCESS. DISCUSSION WITH IR REVEALED ABSCESS TO SMALL AND UNORGANIZED ENOUGH TO PLACE DRAIN. SHE WAS MANAGED MEDICALLY AND DISCHARGED AFTER EVALUATION BY CARDIOLOGY RE; ?CHF. PLAN WILL BE ORAL ANTIBIOTICS AND REIMAGE OUTPATIENT NEXT WEEK. Allergies: Coded Allergies: morphine (VOMITING 12/21/16) oxycodone (VOMITING 12/21/16) Disposition Summary Disposition Principal Diagnosis: APPENDICITIS WITH ABSCESS Additional Diagnosis: CHF Discharge Disposition: home or self care Discharge Instructions General Discharge Information Code Status: Full Code Patient's Diet: REGULAR Patient's Activity: SELF LIMITED Follow-Up Instructions/Appts: ONE WEEK Medications at Discharge Discharge Medications: Continue taking these medications: Atorvastatin Calcium (Atorvastatin Calcium) 20 MG TABLET 1 Tablet ORAL DAILY Qty = 30 Comments: NOT TAKEN IN HOSPITAL Bromocriptine Mesylate (Bromocriptine Mesylate) 2.5 MG TABLET 1 Tablet ORAL TWICE DAILY Qty = 60 Comments: Last Taken: 12/24/16 Time: 0900 AM Levothyroxine Sodium (Levothyroxine Sodium) 88 MCG TABLET 1 Tablet ORAL DAILY Qty = 30 Comments: Last Taken: 12/24/16 Time: 0500 AM Verapamil HCl (Verapamil ER) 180 MG TABLET.ER 1 Tablet ORAL DAILY Qty = 60 Comments: Last Taken: 12/24/16 Time: 0900 AM Citalopram Hydrobromide (Citalopram HBr) 40 MG TABLET 1 Tablet ORAL DAILY Qty = 30 Comments: Last Taken: 12/24/16 Time: 0900AM Valsartan/Hydrochlorothiazide (Valsartan-Hctz 320-12.5 MG Tab) 320 MG-12.5 MG TABLET 1 Tablet ORAL DAILY Qty = 30 Comments: Last Taken: 12/24/16 Time: 0900 AM Warfarin Sodium (Warfarin Sodium) (Unknown Strength) TABLET Unknown Dose ORAL As Directed Qty = 60 Comments: NOT TAKEN IN HOSPITAL Cyanocobalamin (Vitamin B-12) (Unknown Strength) TABLET Unknown Dose ORAL DAILY Comments: NOT TAKEN IN HOSPITAL Cholecalciferol (Vitamin D3) (Vitamin D) (Unknown Strength) CAPSULE Unknown Dose ORAL DAILY Comments: NOT TAKEN IN HOSPITAL Start taking the following new medications: Amoxicillin/Potassium Clav (Augmentin 875-125 Tablet) 875 MG-125 MG TABLET 1 Tablet ORAL TWICE DAILY Qty = 20 No Refills Copies To: CARMEN BERNARD
== END 2016-12-24 09:57 | DRG 373 ==
LOC: ERH 15:51 → 2NA 18:42 → ERHI 18:42 → ENRESERV 22:59 → 2NA 12-22 00:14 → ENPENDDIS 12-24 08:12 → 2NA 12-24 09:57
PROVIDERS: Emergency Medicine; Physician Assistant; Physician Assistant Surgical; ADMIT Surgery
DX: K35.3 Acute appendicitis with localized peritonitis (principal); I48.2 Chronic atrial fibrillation; I10 Essential (primary) hypertension; E66.9 Obesity, unspecified; Z68.39 Body mass index [BMI] 39.0-39.9, adult; I51.7 Cardiomegaly; Z79.01 Long term (current) use of anticoagulants; Z95.2 Presence of prosthetic heart valve; E78.5 Hyperlipidemia, unspecified; E03.9 Hypothyroidism, unspecified
CPT/HCPCS: 2NASP; ERO; 36415; 82436; 93005; 93010; 93306; 96374; J0696; J0744; J1644; J2405; J3490; J7042; J7060